=== PATIENT | male | born 1995 | race Two or more races ===

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

== ENCOUNTER 2022-07-17 12:45 | Emergency (ER) | payer MEDICAID ==
[~2022-07-17] VITALS: Ht 177.8 cm; Wt 77.1 kg
[2022-07-17] MEDS ORDERED: LIDOCAINE 1%-EPI 1:100,000 20 ML VIAL ONE (13:10)
[2022-07-17] MEDS ORDERED: LIDOCAINE HCL 1% 20 ML VIAL TP ONE (13:15)
[2022-07-17] MEDS ORDERED: TDAP DIPH,PERTUSS,TET VAC/PF 0.5 ML DISP.SYRIN IM ONE ×2 (13:15→13:24)
[2022-07-17] MEDS ORDERED: ACETAMINOPHEN ES 500 MG TABLET ONE (13:55)
--- NOTE | 2022-07-17 13:57 | NUR ---
PT WAS EVALUATED BY DR STANFORD. PT WAS D/C'd TO HOME. D/C INSTRUCTIONS GIVEN TO THE PT BY DR STANFORD.
[2022-07-17] MEDS ORDERED: ACETAMINOPHEN ES 500 MG TABLET PO ONE (14:00)
[2022-07-17 14:13] VITALS: BP 136/81
== END 2022-07-17 14:14 | disposition home or self-care (01) ==
LOC: ER 12:45
DX: S60.454A Superficial foreign body of right ring finger, initial encounter (principal); W45.8XXA Other foreign body or object entering through skin, initial encounter; Y93.89 Activity, other specified; Y92.89 Other specified places as the place of occurrence of the external cause; M79.644 Pain in right finger(s)
CPT/HCPCS: 99284; 90715; 90471; J3490; A4663; A9150

== ENCOUNTER 2025-04-21 01:08 | Emergency (ER) | payer MEDICAID | END 2025-04-21 01:58 | disposition left against medical advice (07) | LOC: ER 01:08 | DX: M79.641 Pain in right hand (principal); Z53.21 Procedure and treatment not carried out due to patient leaving prior to being seen by health care provider ==